=== PATIENT | female | born 1965 | race Caucasian/White ===

== ENCOUNTER 2016-11-28 14:10 | Emergency (ER) | payer OTHER ==
[~2016-11-28] VITALS: Ht 167.6 cm; Wt 106.8 kg
[~2016-11-28 14:10] MED LIST: ADVAIR 250/501 DISK IH; DILAUDID2 MG PO; FLAGYL500 MG PO; MOTRIN800 MG PO; TYLENOL325 M1 PO; VENTOLIN HFA18 GM IH; WOMEN'S DAILY1 EAC1 PO
[2016-11-28] MEDS ORDERED: PERCOCET 5/31 TABLET PO (15:02)
[2016-11-28 15:38] VITALS: BP 147/93
== END 2016-11-28 15:39 | disposition home or self-care (01) ==
LOC: EME 14:10
PROC: 2W3QX1Z Immobilization of Right Lower Leg using Splint (ICD-10-PCS; principal; 2016-11-28)
DX: S82.831A Other fracture of upper and lower end of right fibula, initial encounter for closed fracture (principal); W10.9XXA Fall (on) (from) unspecified stairs and steps, initial encounter; Y93.E2 Activity, laundry; F17.200 Nicotine dependence, unspecified, uncomplicated
CPT/HCPCS: 73610; 99281; 99284